=== PATIENT | female | born 1980 | race Asian ===

== ENCOUNTER 2017-11-18 11:57 | Emergency (ER) | payer SELFPAY ==
[2017-11-18 12:27] LABS: Bilirubin Negative (Negative); Blood, Urine Moderate (Negative); Clarity CLEAR (Clear); Glucose, Urine (Dipstick) Negative (Negative); Leukocyte Small (Negative); Nitrite Negative (Negative); Protein, Urine (Dipstick) Negative (Neg-Trace); Specific Gravity, Urine 1.005 (1.002-1.036); Urobilinogen 0.2 mg/dL (0.2-1.0); pH, Urine 7.5 (5.0-9.0)
[2017-11-18 12:30] LABS: Bacteria/HPF None Seen HPF (None Seen); Hyaline Casts/LPF 0-3 HYALINE CAST LPF (0-3 Hyaline); RBC/HPF 0-3 HPF (0-3); Squamous Epithelial None Seen HPF (0-3); WBC/HPF 0-3 HPF (0-3)
[2017-11-18 12:39] LABS: #Basophils 0.1 thou/uL (0.0-0.2); #Eosinphils 0.1 thou/uL (0.0-0.7); #Lymphocytes 1.7 thou/uL (1.20-3.40); #Monocytes 0.5 thou/uL (0.11-0.59); #Neutrophils 4.8 thou/uL (1.40-6.50); %Basophils 1.1 % (0.0-1.0); %Eosinophils 0.8 % (0.0-10.0); %Lymphocytes 23.3 % (21.0-51.0); %Monocytes 7.4 % (0.0-10.0); %Neutrophils 67.4 % (42.0-75.0); Hemoglobin 14.3 g/dL (12.0-16.0); Mean Corpuscular HGB CONC 33.6 g/dL (32.0-36.0); Mean Corpuscular Volume 95.2 fl (81.0-99.0); Mean Platelet Volume 7.3 fL (7.4-10.4); Platelet Count 271 thou/uL (130-400); RBC Distribution Width 11.6 % (11.5-14.5); Red Blood Cell (RBC) Count 4.46 mill/uL (4.20-5.40); White Blood Cell (WBC) Count 7.1 thou/uL (4.8-10.8)
[2017-11-18 13:07] LABS: ALT (SGPT) 10 U/L (8-55); AST (SGOT) 15 U/L (5-34); Albumin 4.3 g/dL (3.5-5.0); Alkaline Phosphatase 62 U/L (40-150); Anion Gap 9 mmol/L (10-20); BUN (Urea Nitrogen) 10 mg/dL (7.0-18.7); Bilirubin, Total 0.5 mg/dL (0.2-1.2); Calc. Creatinine Clearance 0 mL/min (70-130); Calcium 9.4 mg/dL (7.8-10.44); Carbon Dioxide 24 mmol/L (22-29); Chloride 105 mmol/L (98-107); Estimated GFR-MDRD Greater than 90; Globulin 3.4 g/dL (2.4-3.5); Glucose 100 mg/dL (70-105); Potassium 3.9 mmol/L (3.5-5.1); Protein, Total 7.7 g/dL (6.0-8.3); Sodium 134 mmol/L (136-145)
--- NOTE | 2017-11-18 13:49 | ULT ---
ULTRASOUND PELVIC ULTRASOUND TRANSVAGINAL DOPPLER DUPLEX: Date: 11/18/17 HISTORY: 37-year-old female with first trimester vaginal bleeding. TECHNIQUE: Transabdominal transducer used to evaluate intrapelvic contents using the urinary bladder as an acous tic window. Endovaginal transducer used to visualize intrapelvic contents in greater detail. Color fl ow Doppler and Pulsed Doppler spectral waveform analysis of ovaries. FINDINGS: Intrauterine gestational sac with mean sac diameter of 4.4 cm. pole: [place]-rump length 1.0 cm: 7 weeks 1 day heart activity: None. Subchorionic hemorrhage: None. Free fluid in cul-de-sac: None. Bilateral ovaries: Normal size. Blood flow in ovaries: Bilaterally detected. Corpus luteal cyst: None. IMPRESSION: First trimester intrauterine demise (missed ). BLAYNE Cortes POS: [facility]
== END 2017-11-18 14:39 | disposition home or self-care (01) ==
LOC: ERS 11:57
DX: O02.1 Missed abortion (principal)
CPT/HCPCS: 36415; 76856; 80053; 81003; 81015; 84702; 85025; 86900; 86901; 93976

== ENCOUNTER 2018-08-11 19:38 | Emergency (ER) | payer BC, SELFPAY ==
--- NOTE | 2018-08-11 21:09 | RAD ---
CHEST TWO VIEWS: INDICATIONS: Chest pain. COMPARISON: No prior comparison. FINDINGS: The lungs are mildly hyperinflated. There is no consolidation, effusion, or pneumothorax. The cardi ac silhouette is normal in size. The osseous structures are intact. IMPRESSION: 1. No focal consolidation. 2. Hyperinflated lungs. POS: [facility]
== END 2018-08-11 21:50 | disposition home or self-care (01) ==
LOC: ERS 19:38
DX: S20.219A Contusion of unspecified front wall of thorax, initial encounter (principal); S60.311A Abrasion of right thumb, initial encounter; V89.2XXA Person injured in unspecified motor-vehicle accident, traffic, initial encounter
CPT/HCPCS: 71046

== ENCOUNTER 2019-06-04 10:04 | Inpatient (IN) | payer BC ==
[2019-06-04] MEDS ORDERED: Misoprostol 200 MCG TAB PR PRN (10:53)
[2019-06-04] MEDS ORDERED: Carboprost 250 MCG/ML AMP IM PRN (10:53)
[2019-06-04] MEDS ORDERED: Butorphanol Tartrate 1 MG/ML VIAL SLOW IVP PRN (10:53)
[2019-06-04] MEDS ORDERED: Promethazine HCl 25 MG/ML VIAL IM PRN ×2 (10:53→18:34)
[2019-06-04] MEDS ORDERED: Methylergonovine 0.2 MG/ML VIAL IM PRN (10:53)
[2019-06-04] MEDS ORDERED: Ibuprofen 800 MG TAB PO PRN (10:53)
[2019-06-04] MEDS ORDERED: hydrALAZINE 20 MG/ML VIAL SLOW IVP PRN ×2 (10:53→18:34)
[2019-06-04] MEDS ORDERED: NS / Oxytocin 40 units/1000ml 1,000 ML IV PRN (10:53)
[2019-06-04] MEDS ORDERED: Diphenoxylate HCl/Atropine Tablet PO PRN (10:53)
[2019-06-04] MEDS ORDERED: Acetaminophen 500 MG TAB PO PRN (10:53)
[2019-06-04] MEDS ORDERED: Ondansetron PF 4 MG/2 ML Vial IVP PRN ×2 (10:53→18:34)
[2019-06-04] MEDS ORDERED: HYDROcodone/Acetaminophen 5/325 mg Tablet PO PRN ×3 (10:53→18:34)
[2019-06-04] MEDS ORDERED: Lidocaine 1% (PF) 30 ML VIAL SC PRN (10:53)
[2019-06-04] MEDS ORDERED: NS w/ Oxytocin 10 units 500 ML IV SCH (11:00)
[2019-06-04] MEDS ORDERED: Lactated Ringer's 1,000 ML IV SCH (11:00)
[2019-06-04 11:22] LABS: Hemoglobin 12.6 g/dL (12.0-16.0); Mean Corpuscular HGB CONC 34.5 g/dL (32.0-36.0); Mean Corpuscular Hemoglobin 31.8 pg (27.0-31.0); Mean Corpuscular Volume 92.4 fL (78.0-98.0); Mean Platelet Volume 7.8 fL (7.4-10.4); Platelet Count 296 thou/uL (130-400); RBC Distribution Width 12.1 % (11.5-14.5); Red Blood Cell (RBC) Count 3.95 mill/uL (4.20-5.40); White Blood Cell (WBC) Count 10.1 thou/uL (4.8-10.8)
[2019-06-04 11:59] LABS: Syphilis Antibody Nonreactive (Nonreactive); Syphilis Antibody Index 0.14 S/CO (<1.00 Non-Reactive)
[2019-06-04 11:59] LABS: HBSAg Index 0.18 S/CO (0-0.99); Hep B Surf Ag Non-Reactive S/CO (NonReactive)
--- NOTE | 2019-06-04 12:54 | PDOC.LDHP ---
Labor and Delivery H&P Chief complaint: contractions HPI: 39yo at 38w1d by LMP with painful ctx, vag spotting, no LOF. Good FM Current gestational age (weeks): 38 Due date: 06/17/19 Dating criteria: last menstrual period Grav: 3 Para: 1 Current complications: none Abnormal US findings: No Past Medical History: denies Current medications: pre- vitamins Previous surgical history: none Social history: none - Physical Exam Vital signs reviewed and normal: yes General: NAD Heart: RRR Lungs: CTAB Abdomen: gravid Extremeties: no edema FHT: category 1 [place] contractions every: 3min - Vaginal Exam cm dilated: 8 Effacement: 90% Station: 0 (arom clear) - OB Labs Blood type: B RH: positive Antibody Screen: negative HIV: negative RPR: negative HEPSAg: negative 1 hour GCT: negative GBS: negative Urine drug screen: negative Rubella: immune - Assessment L&D Assessment: term patient in labor - Plan Plan: admit to L&D, labor augmentation if indicated, informed consent obtained, anesthesia consult for pain management
--- NOTE | 2019-06-04 17:07 | PDOC.OPDEL ---
OB Operative/Delivery Note Delivery Dr/Surgeon: Evaristo Assist: n/a Pre-Delivery Diagnosis: active labor Procedure/Post Delivery Dx: spontaneous vaginal delivery Weeks gestation: 38 Anesthesia: local - Findings A Sex: male - 1 min: 9 - 5 min: 9 - Additional Findings/Plan Placenta delivered: spontaneous Repaired Obstetrical Laceration: 2nd degree Estimated blood loss: 75cc Compilations/Other Findings: body cord and leg cord x 1 Post delivery plan: routine recovery
[2019-06-04 17:13] VITALS: BMI 23.1
[2019-06-04] MEDS ORDERED: Preparation H Ointment 57 gram tube RC PRN (18:34)
[2019-06-04] MEDS ORDERED: Benzocaine-Menthol 82.5 ML CAN TOP PRN (18:34)
[2019-06-04] MEDS ORDERED: Bisacodyl 10 MG SUPP PR PRN (18:34)
[2019-06-04] MEDS ORDERED: Milk Of Magnesia 30 ML UDCUP PO PRN (18:34)
[2019-06-04] MEDS ORDERED: diphenhydrAMINE 25 MG CAP PO PRN (18:34)
[2019-06-04] MEDS ORDERED: Lanolin Ointment 7 GM TUBE TOP PRN (18:34)
[2019-06-04] MEDS ORDERED: NS / Oxytocin 40 units/1000ml 1,000 ML IV SCH (18:45)
[2019-06-04] MEDS: Ibuprofen 800 MG TAB PO SCH (21:17)
[2019-06-04] MEDS: Docusate Calcium (SURFAK) 240 MG CAP PO SCH (21:17)
[2019-06-05] MEDS: Ibuprofen 800 MG TAB PO SCH ×2 (06:14→14:11)
[2019-06-05] MEDS ORDERED: Ferrous Sulfate 325 MG TAB PO SCH (08:00)
[2019-06-05] MEDS ORDERED: Prenatal Vitamin 1 TAB PO SCH (09:00)
[2019-06-05] MEDS ORDERED: Adacel (T-DAP) 0.5 ML SYRINGE IM ONE (09:00)
[2019-06-05] MEDS: Docusate Calcium (SURFAK) 240 MG CAP PO SCH (09:43)
[2019-06-05 12:06] VITALS: BP 130/58; TEMP 98
--- NOTE | 2019-06-05 12:24 | PDOC.PP ---
Post Progress Note Post Day #: 1 PO intake tolerated: yes Flatus: yes Ambulation: yes Vital Signs (12 hours) Temp Pulse Resp BP Pulse Ox 06/05/19 12:05 98.0 F 76 20 130/58 L 06/05/19 08:35 97.4 F L 73 20 101/55 L 96 06/05/19 03:45 98.0 F 69 16 94/51 L Weight Weight 135 lb - Physical Examination General: NAD Respiratory: non-labored breathing Abdominal: no distention, appropriately TTP Fundus firm & at: umb Skin: no rash Neurological: no gross focal deficits Psychiatric: normal affect Result Diagrams: 06/04/19 11:06 Additional Labs: Post Labs Blood Type B POSITIVE 06/04/19 11:12 Hep Bs Antigen Non-Reactive S/CO (NonReactive) 06/04/19 11:05 - Assessment/Plan PPD1 s/p TSVD VSSAF Doing well lochia< menses, pain controlled Rh pos RImm DC home Fu 6w
== END 2019-06-05 18:46 | disposition home or self-care (01) | DRG 807 ==
LOC: L&D/OP 10:04 → L&D 10:07 → 3SW 21:58
PROVIDERS: ADMIT Student in an Organized Health Care Education/Training Program; ATTEND Student in an Organized Health Care Education/Training Program
PROC: 10E0XZZ Delivery of Products of Conception, External Approach (ICD-10-PCS; principal; 2019-06-04)
PROC: 0KQM0ZZ Repair Perineum Muscle, Open Approach (ICD-10-PCS; 2019-06-04)
PROC: 10907ZC Drainage of Amniotic Fluid, Therapeutic from Products of Conception, Via Natural or Artificial Opening (ICD-10-PCS; 2019-06-04)
PROC: 3E033VJ Introduction of Other Hormone into Peripheral Vein, Percutaneous Approach (ICD-10-PCS; 2019-06-04)
PROC: 3E0P7VZ Introduction of Hormone into Female Reproductive, Via Natural or Artificial Opening (ICD-10-PCS; 2019-06-04)
DX: O69.89X0 Labor and delivery complicated by other cord complications, not applicable or unspecified (principal); Z37.0 Single live birth; O70.1 Second degree perineal laceration during delivery; Z3A.38 38 weeks gestation of pregnancy
CPT/HCPCS: 36415; 85027; 86780; 86850; 86900; 86901; 87340